=== PATIENT | male | born 1995 | race African-American/Black ===

== ENCOUNTER 2025-01-08 15:37 | Observation (INO) | payer OTHER ==
[2025-01-08] MEDS ORDERED: NA CHLORIDE 0.9% 1,000 ML ONE (15:40)
[2025-01-08 16:03] LABS: PT Prothrombin Time 10.9 SECONDS (10-13.0); Protime INR 0.95
--- NOTE | 2025-01-08 16:05 | RAD REPORT ---
EXAM: Chest Pa And Lat (2 Views) HISTORY: 29 years Male DYSPNEA COMPARISON: None. FINDINGS: LUNGS/PLEURA: Mild basilar opacities versus underpenetration. CARDIAC/MEDIASTINUM: The cardiac silhouette is within normal limits. UPPER ABDOMEN: No significant abnormality. BONES: No acute abnormality. LINES/TUBES/OTHER: N/A IMPRESSION: Mild basilar opacities could reflect atelectasis, airspace disease, or underpenetration. Consider a d edicated PA and lateral to better assess when the patient's condition permits.
[2025-01-08 16:06] LABS: Specific Gravity 1.011 (1.005-1.030); Sqamous Epithelial None Seen /HPF (None Seen); Urine Bacteria None Seen /HPF (<20); Urine Bilirubin NEGATIVE (Negative); Urine Blood 2+ (Negative); Urine Clarity Clear (Clear); Urine Color Colorless (Yellow); Urine Culture Reflex Order NOT NEEDED; Urine Glucose NEGATIVE (Negative); Urine Ketones TRACE (Negative); Urine Microscopic Reflex YN ORDER UMIC; Urine Nitrite NEGATIVE (Negative); Urine Protein 2+ (Negative); Urine RBC <5 /HPF (None Seen); Urine Urobilinogen Normal (Normal); Urine WBC <5 /HPF (<5)
[2025-01-08 16:09] LABS: Absolute Basophils 0.1 K/uL (0-0.5); Absolute Eosinophils 0.3 K/uL (0-0.5); Absolute Lymphocytes (CBC) 8.4 K/uL (0.7-4.9); Absolute Monocytes 0.9 K/uL (0.1-1.3); Absolute Neutrophil 2.2 K/uL (1.8-8.0); Basophils % 0.5 % (0-1.3); Eosinophils % 2.4 % (0-4.4); Hematocrit 45.4 % (39.6-49.0); Hemoglobin 15.2 g/dL (13.6-17.9); Lymphocytes % 70.9 % (15.3-44.8); MCH 30.1 pg (27.0-35.0); MCHC 33.4 g/dL (32.0-36.0); MPV 9.9 fL (7.6-11.3); Monocytes % 7.2 % (3.3-12.3); Nucleated Red Blood Cells % 0.2 % (0-0); Platelets 319 thou/uL (152-406); RBC Red Blood Cell Count 5.05 M/uL (4.33-5.43); Red Cell Distribution Width 13.2 % (12.1-15.2)
[2025-01-08 16:28] LABS: ALT/SGPT 69 U/L (16-61); Albumin 4.3 g/dL (3.4-5.0); Albumin/Globulin Ratio 0.9 (1.1-1.8); Alkaline Phosphatase 93 U/L (45-117); Anion Gap 30.4 mEq/L (5.0-15.0); BUN Blood Urea Nitrogen 16 mg/dL (7-18); Bilirubin Total 0.2 mg/dL (0.2-1.0); Globulin 4.7 g/dL (2.3-3.5); Glomerular Filtration Rate 64 ml/min (=/>90); Glucose Level 73 mg/dL (74-106); NT PRO-BNP 24 pg/mL (<125); Sodium Level 140 mEq/L (136-145); Troponin High Sensitivity 15.7 pg/mL (<58.9)
[2025-01-08 16:29] LABS: AST/SGOT 31 U/L (15-37); Bilirubin Direct < 0.2 mg/dL (0-0.2); Magnesium 3.4 mg/dL (1.6-2.4); Potassium 4.4 mEq/L (3.5-5.1)
[2025-01-08 16:37] LABS: Bicarbonate 10 mEq/L (21-32)
[2025-01-08 17:01] LABS: Blood O2 Saturation 89.1 % (92-98.5)
[2025-01-08 17:02] LABS: Arterial Blood Carboxyhemoglob 0.4 % (0-1.5); Blood Gas Oxyhemoglobin 86.8 % (94-97); Blood Gas THB 15.5 g/dl (12-18)
[2025-01-08 17:10] LABS: Atypical Lymphocytes 1 %; Band Neutrophils 0 % (0-1); Differential Total Cells Count 100; Eosinophils 1 % (0-3); Lymphocytes 69 % (15-42); Monocytes 7 % (0-10); Segmented Neutrophils 21 % (40-80)
[2025-01-08 17:11] LABS: Blood Morphology Comment NOT SEEN (NOT SEEN); Platelet Estimate ADEQ
[2025-01-08] MEDS ORDERED: LEVALBUTEROL 1.25 MG/3 ML NEB ONE (17:22)
[2025-01-08] MEDS ORDERED: FAMOTIDINE 20 MG/2 ML VIAL IV ONE (17:22)
[2025-01-08] MEDS ORDERED: IPRATROPIUM BROM 0.5MG/2.5ML ONE (17:22)
[2025-01-08] MEDS ORDERED: PIPERACIL/TAZO 3.375 GM VIAL IV ONE (17:23)
[2025-01-08] MEDS ORDERED: NA CHLORIDE 0.9% 100 ML ONE (17:23)
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
[2025-01-08] MEDS ORDERED: IPRATROPIUM BROM 0.5MG/2.5ML NEB PRN (18:57)
[2025-01-08] MEDS ORDERED: ALBUTEROL 2.5 MG/3 ML NEB SOL NEB PRN (18:57)
[2025-01-08] MEDS ORDERED: ONDANSETRON 4 MG/2 ML VIAL IV PRN (18:57)
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
[2025-01-08] MEDS: NA CHLORIDE 0.9% 1,000 ML IV SCH (20:22)
[2025-01-08 22:41] VITALS: BMI 42.7
[2025-01-08 23:40] LABS: Magnesium 2.7 mg/dL (1.6-2.4); Phosphorus 3.1 mg/dL (2.5-4.9)
[2025-01-09] MEDS: AMPICILLIN/SULBACT 3 GM in NA CHLORIDE 0.9% 100 ML IVPB SCH (00:37)
[2025-01-09] MEDS: NA CHLORIDE 0.9% 500 ML IV ONE (00:38)
[2025-01-09 04:02] VITALS: O2SAT 98
[2025-01-09 07:32] LABS: Absolute Lymphocytes (CBC) 2.4 K/uL (0.7-4.9); Absolute Monocytes 1.1 K/uL (0.1-1.3); Absolute Neutrophil 5.8 K/uL (1.8-8.0); Basophils % 0.2 % (0-1.3); Eosinophils % 0.2 % (0-4.4); Hematocrit 38.1 % (39.6-49.0); Hemoglobin 13.4 g/dL (13.6-17.9); Lymphocytes % 26.1 % (15.3-44.8); MCH 30.9 pg (27.0-35.0); MCV 88.1 fL (80-100); MPV 9.9 fL (7.6-11.3); Monocytes % 11.4 % (3.3-12.3); Neutrophils % 62.1 % (41.7-73.7); Nucleated Red Blood Cells % 0.1 % (0-0); Platelets 228 thou/uL (152-406); RBC Red Blood Cell Count 4.33 M/uL (4.33-5.43); Red Cell Distribution Width 13.3 % (12.1-15.2)
[2025-01-09 07:42] LABS: Anion Gap 9.8 mEq/L (5.0-15.0); Potassium 3.8 mEq/L (3.5-5.1)
[2025-01-09] MEDS ORDERED: ALBUTEROL 2.5 MG/3 ML NEB SOL NEB PRN (08:03)
[2025-01-09] MEDS: ENOXAPARIN 40 MG/0.4 ML SQ SCH (08:45)
[2025-01-09] MEDS: POTASSIUM CL SA 10 MEQ TAB PO ONE (08:45)
[2025-01-09 08:50] VITALS: BP 134/70; TEMP 98.2
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
--- NOTE | 2025-01-11 12:27 | EKG ---
Test Date: 2025-01-08 Test Time: 15:43:30 [place] Mason: Bonifacio CAMARILLO MEASUREMENT RESULTS: Intervals: Rate: 86 WV: 156 QRSD: 92 QT: 376 QTc: 449 [place]: P: 72 WV: 156 QRS: 91 T: 27 INTERPRETIVE STATEMENTS: Normal sinus rhythm Rightward axis Nonspecific ST abnormality Abnormal ECG No previous ECG available for comparison Electronically Signed On 01-11-25 12:21:06 CDT by Jose David Monson
== END 2025-01-09 11:40 | disposition home or self-care (01) ==
LOC: ER 15:37 → ERHOLD 18:57 → 2ND 19:39
PROVIDERS: ADMIT Internal Medicine; ATTEND Hospitalist
DX: T75.1XXA Unspecified effects of drowning and nonfatal submersion, initial encounter (principal); Y93.11 Activity, swimming; Y92.832 Beach as the place of occurrence of the external cause; Y99.9 Unspecified external cause status; E87.20 Acidosis, unspecified; N17.9 Acute kidney failure, unspecified; J98.4 Other disorders of lung; D72.829 Elevated white blood cell count, unspecified; R74.02 Elevation of levels of lactic acid dehydrogenase [LDH]
CPT/HCPCS: 96365; 96361; 93005; 85025 ×2; 81001; 80048 ×2; 36415 ×2; 83735 ×2; 84100; 85610; 80076; 83605 ×2; 84484; 83880; 71275; 71046; 82805; 96375; 99285; 82077; 36600; Q9967; J7614; J2543; J7644; J1650; J0295 ×2; J7040; J7030 ×3; G0378 ×3